=== PATIENT | female | born 1945 | race Caucasian/White ===

== ENCOUNTER → 2016-10-05 | Outpatient (CLI) | payer MEDICARE, BC ==
[~2016-10-05] MED LIST: ATORVASTATIN CA20 MG PO; LISINOPRIL10 MG PO; ONE-A-DAY ESSE1 EAC1 PO; PREMARIN0.45 MG PO; PREMARIN0.625 MG PO; VITAMIN D-32000 UNI2 PO; ZESTRIL20 MG PO; [UNRECOGNIZED DRUG - OTHER] LEFT EYE
== END | disposition home or self-care (01) ==
LOC: CDC 10:25
DX: Z01.810 Encounter for preprocedural cardiovascular examination (principal)
CPT/HCPCS: 93000

== ENCOUNTER 2017-02-22 15:26 | Inpatient (IN) | payer OTHER, BC ==
[~2017-02-22] VITALS: Ht 160 cm; Wt 59.6 kg
[2017-02-22] MEDS ORDERED: VITAMIN D31000 UNIT PO (19:39)
[2017-02-22] MEDS ORDERED: LOVASTATIN20 MG PO (19:39)
[2017-02-22] MEDS ORDERED: [UNRECOGNIZED DRUG - OTHER] TP (19:40)
[2017-02-22] MEDS ORDERED: LO-DOSE ASPIRIN81 M2 PO (19:40)
[2017-02-22] MEDS ORDERED: MELOXICAM15 MG PO (19:40)
[2017-02-22] MEDS ORDERED: AMLODIPINE BES2.5 MG PO (19:41)
[2017-02-22 22:30] VITALS: BP 138/75
[2017-02-23 03:18] VITALS: BP 139/73
[2017-02-23 07:38] LABS: HEMATOCRIT 39.3 % (36.0-46.0); MCH 31.5 PG (29.0-34.0); MCHC 34.4 G/DL (30.0-36.0); MCV 91.6 FL (83-99); MEAN PLAT.VOLUME 10.6 uM^3 (9.5-12.4); PLATELET COUNT 205 K/uL (156-360); RBC DIS.WIDTH-CV 12.6 % (11.8-14.6); RBC DIS.WIDTH-SD 41.9 % (39-53); RED BLOOD COUNT 4.29 M/uL (3.80-5.20); WHITE BLOOD COUNT 7.1 K/uL (4.1-10.2)
[2017-02-23 07:55] VITALS: BP 145/68
[2017-02-23 08:06] LABS: ANION GAP 6 MEQ/L (2-14); CHLORIDE 97 MEQ/L (99-109); GFR ESTIMATE (CALCULATED) > 59 mL/min/; GLUCOSE 131 mg/dL (70-99); POTASSIUM 4.2 MEQ/L (3.7-5.4); SAMPLE HEMOLYSIS CHECK 0; SAMPLE ICTERIC CHECK 0; SAMPLE LIPEMIA CHECK 0; SODIUM 136 MEQ/L (136-147); UREA NITROGEN (BUN) 23 mg/dL (9-23)
[2017-02-23 11:32] VITALS: BP 134/70
[2017-02-23 15:39] VITALS: BP 167/81
[2017-02-23 17:55] VITALS: BP 146/75
[2017-02-24 03:52] VITALS: BP 133/64
[2017-02-24 07:52] VITALS: BP 132/67
[2017-02-24 12:03] VITALS: BP 150/70
[2017-02-24 16:40] VITALS: BP 176/79
[2017-02-24 17:20] LABS: ANION GAP 8 MEQ/L (2-14); CHLORIDE 103 MEQ/L (99-109); GFR ESTIMATE (CALCULATED) > 59 mL/min/; GLUCOSE 118 mg/dL (70-99); POTASSIUM 3.8 MEQ/L (3.7-5.4); SAMPLE HEMOLYSIS CHECK 0; SAMPLE ICTERIC CHECK 0; SAMPLE LIPEMIA CHECK 0; SODIUM 140 MEQ/L (136-147); UREA NITROGEN (BUN) 9 mg/dL (9-23)
[2017-02-24 20:05] VITALS: BP 138/98
[2017-02-24 22:54] VITALS: BP 145/71
[2017-02-25 03:38] VITALS: BP 133/80
[2017-02-25 07:12] LABS: HEMATOCRIT 39.3 % (36.0-46.0); MCH 30.4 PG (29.0-34.0); MCHC 32.8 G/DL (30.0-36.0); MCV 92.5 FL (83-99); MEAN PLAT.VOLUME 10.3 uM^3 (9.5-12.4); PLATELET COUNT 197 K/uL (156-360); RBC DIS.WIDTH-CV 12.2 % (11.8-14.6); RBC DIS.WIDTH-SD 41.9 % (39-53); RED BLOOD COUNT 4.25 M/uL (3.80-5.20); WHITE BLOOD COUNT 4.5 K/uL (4.1-10.2)
[2017-02-25 07:22] VITALS: BP 137/76
[2017-02-25 07:27] LABS: MAGNESIUM 1.9 mg/dl (1.3-2.7)
[2017-02-25 11:20] VITALS: BP 140/76
[2017-02-25 15:15] VITALS: BP 162/74
[2017-02-25 23:49] VITALS: BP 138/72
[2017-02-26 08:08] VITALS: BP 138/80
[2017-02-26 10:13] LABS: ANION GAP 9 MEQ/L (2-14); CHLORIDE 103 MEQ/L (99-109); POTASSIUM 3.8 MEQ/L (3.7-5.4); SAMPLE HEMOLYSIS CHECK 0; SAMPLE ICTERIC CHECK 0; SAMPLE LIPEMIA CHECK 0; SODIUM 139 MEQ/L (136-147)
[2017-02-26 10:18] LABS: GFR ESTIMATE (CALCULATED) > 59 mL/min/; GLUCOSE 102 mg/dL (70-99); UREA NITROGEN (BUN) 6 mg/dL (9-23)
[2017-02-26 16:08] VITALS: BP 147/79
[2017-02-27 00:19] VITALS: BP 142/81
[2017-02-27 07:56] VITALS: BP 130/60
[2017-02-27 15:58] VITALS: BP 145/67
[2017-02-27 23:07] VITALS: BP 143/74
== END 2017-02-28 10:30 | disposition home or self-care (01) | DRG 389 ==
LOC: EME 15:26 → 2EAST 18:32 → EDOF 18:32 → 2EAST 21:50
PROVIDERS: Physician Assistant; Surgery
DX: K56.5 Intestinal adhesions [bands] with obstruction (postinfection) (principal); E87.3 Alkalosis; K21.9 Gastro-esophageal reflux disease without esophagitis; E78.00 Pure hypercholesterolemia, unspecified; I10 Essential (primary) hypertension; E87.6 Hypokalemia; M19.90 Unspecified osteoarthritis, unspecified site; K57.30 Diverticulosis of large intestine without perforation or abscess without bleeding
CPT/HCPCS: 36415; 74000; 80048; 82565; 83735; 84100; 84520; 85027; 99281; 99285; J1170; J2405; J7120; S0028

== ENCOUNTER 2017-06-29 19:34 | Inpatient (IN) | payer OTHER, BC ==
[~2017-06-29] VITALS: Ht 161.3 cm; Wt 54.2 kg
[~2017-06-29 19:34] MED LIST changes: +AMLODIPINE BES2.5 MG PO; +LO-DOSE ASPIRIN81 M2 PO; +LOVASTATIN20 MG PO; +MELOXICAM15 MG PO; +VITAMIN D31000 UNIT PO; +[UNRECOGNIZED DRUG - OTHER] TP
[2017-06-29 20:18] LABS: EOSINOPHIL (%) 0 % (0-5); HEMATOCRIT 44.2 % (36.0-46.0); IMMATURE GRANULOCYTE (%) 0.3 % (0.0-0.7); INSTRUMENT ABS NEUTROPHIL CT 6.4 K/uL; LYMPHOCYTE COUNT 0.8 K/uL (1.0-2.8); MCHC 33.9 G/DL (30.0-36.0); MCV 91.3 FL (83-99); MONOCYTE (%) 5.8 % (3-12); MONOCYTE COUNT 0.5 K/uL (0-0.8); NEUTROPHIL (%) 82.8 % (45-76); NEUTROPHIL COUNT 6.4 K/uL (1.8-6.4); PLATELET COUNT 243 K/uL (156-360); RBC DIS.WIDTH-CV 12.4 % (11.8-14.6); RBC DIS.WIDTH-SD 41.7 % (39-53); RED BLOOD COUNT 4.84 M/uL (3.80-5.20); WHITE BLOOD COUNT 7.7 K/uL (4.1-10.2)
[2017-06-29 20:31] LABS: PROTHROMBIN TIME 10.9 SEC (10.2-12.9)
[2017-06-29 20:33] LABS: PTT 29.6 SEC (25-37)
[2017-06-29 20:34] LABS: CHLORIDE 98 mEq/L (99-109); POTASSIUM 3.9 mEq/L (3.7-5.4); SODIUM 140 mEq/L (136-147)
[2017-06-29 20:35] LABS: MAGNESIUM 2.2 mg/dL (1.3-2.7)
[2017-06-29 20:36] LABS: GLUCOSE 144 mg/dL (70-99)
[2017-06-29 20:38] LABS: ANION GAP 15 MEQ/L (2-14); TOTAL BILIRUBIN 0.6 mg/dL (0.0-1.0)
[2017-06-29 20:40] LABS: ALKALINE PHOSPHATASE 70 IU/L (3-129); GFR ESTIMATE (CALCULATED) 58 mL/min/
[2017-06-29 20:41] LABS: UREA NITROGEN (BUN) 24 mg/dL (9-23)
[2017-06-29 20:43] LABS: LIPASE 30 U/L (1.0-51.0)
[2017-06-29 22:23] LABS: ADD MIUA? YES; BILIRUBIN NEGATIVE; BLOOD SMALL; COLOR STRAW ((YELLOW)); GLUCOSE (STRIP) NEGATIVE; KETONES 5; LEUKOCYTES NEGATIVE; NITRITE NEGATIVE; PROTEIN (STRIP) NEGATIVE; SPECIFIC GRAVITY 1.027 (1.000-1.030); UROBILINOGEN 0.2 MG/DL (0.2-1.0)
[2017-06-29 22:32] LABS: BACTERIA NONE SEEN /HPF; EPITHELIAL CELLS RARE /HPF; HYALINE CASTS 0-5 /LPF; MUCUS TRACE /LPF; RED BLOOD CELLS 0-5 /HPF (0-5); UCUL ADDED? NO; WHITE BLOOD CELLS 0-5 /HPF (0-5)
[2017-06-29 23:08] VITALS: BP 138/82
[2017-06-30 04:15] VITALS: BP 132/78
[2017-06-30 06:28] LABS: HEMATOCRIT 39.3 % (36.0-46.0); MCH 31.2 PG (29.0-34.0); MCHC 34.1 G/DL (30.0-36.0); MCV 91.6 FL (83-99); MEAN PLAT.VOLUME 9.8 uM^3 (9.5-12.4); PLATELET COUNT 216 K/uL (156-360); RBC DIS.WIDTH-CV 12.9 % (11.8-14.6); RBC DIS.WIDTH-SD 43.2 % (39-53); RED BLOOD COUNT 4.29 M/uL (3.80-5.20); WHITE BLOOD COUNT 4.5 K/uL (4.1-10.2)
[2017-06-30 07:06] LABS: ALKALINE PHOSPHATASE 55 IU/L (3-129); ANION GAP 11 MEQ/L (2-14); CHLORIDE 105 MEQ/L (99-109); GFR ESTIMATE (CALCULATED) > 59 mL/min/; POTASSIUM 3.9 MEQ/L (3.7-5.4); SAMPLE HEMOLYSIS CHECK 0; SAMPLE ICTERIC CHECK 0; SAMPLE LIPEMIA CHECK 0; SODIUM 142 MEQ/L (136-147); TOTAL BILIRUBIN 0.6 MG/DL (0.0-1.0); UREA NITROGEN (BUN) 23 mg/dL (9-23)
[2017-06-30 07:09] LABS: GLUCOSE 102 mg/dL (70-99)
[2017-06-30 07:10] VITALS: BP 114/63
[2017-06-30 10:59] VITALS: BP 112/61
[2017-06-30 15:31] VITALS: BP 152/65
[2017-06-30 19:05] VITALS: BP 137/68
[2017-06-30 22:30] VITALS: BP 139/68
[2017-07-01 03:15] VITALS: BP 124/69
[2017-07-01 08:24] VITALS: BP 154/76
[2017-07-01 15:55] VITALS: BP 140/58
[2017-07-01 19:00] VITALS: BP 125/78
[2017-07-02 00:21] VITALS: BP 130/60
[2017-07-02 04:00] VITALS: BP 120/63
[2017-07-02 06:21] LABS: HEMATOCRIT 33.3 % (36.0-46.0); MCH 30.5 PG (29.0-34.0); MCHC 33.3 G/DL (30.0-36.0); MCV 91.5 FL (83-99); MEAN PLAT.VOLUME 9.6 uM^3 (9.5-12.4); PLATELET COUNT 169 K/uL (156-360); RBC DIS.WIDTH-CV 12.2 % (11.8-14.6); RBC DIS.WIDTH-SD 41.3 % (39-53); RED BLOOD COUNT 3.64 M/uL (3.80-5.20); WHITE BLOOD COUNT 3.2 K/uL (4.1-10.2)
[2017-07-02 06:48] LABS: ANION GAP 9 MEQ/L (2-14); CHLORIDE 108 MEQ/L (99-109); GFR ESTIMATE (CALCULATED) > 59 mL/min/; GLUCOSE 112 mg/dL (70-99); POTASSIUM 3.2 MEQ/L (3.7-5.4); SAMPLE HEMOLYSIS CHECK 0; SAMPLE ICTERIC CHECK 0; SAMPLE LIPEMIA CHECK 0; SODIUM 142 MEQ/L (136-147); UREA NITROGEN (BUN) 13 mg/dL (9-23)
[2017-07-02 07:54] VITALS: BP 135/65
[2017-07-02 16:17] VITALS: BP 137/67
[2017-07-02 23:34] VITALS: BP 124/60
[2017-07-03 06:15] LABS: ANION GAP 5 MEQ/L (2-14); CHLORIDE 107 MEQ/L (99-109); GFR ESTIMATE (CALCULATED) > 59 mL/min/; GLUCOSE 115 mg/dL (70-99); SAMPLE HEMOLYSIS CHECK 0; SAMPLE ICTERIC CHECK 0; SAMPLE LIPEMIA CHECK 0; SODIUM 142 MEQ/L (136-147); UREA NITROGEN (BUN) 6 mg/dL (9-23)
[2017-07-03 07:30] VITALS: BP 133/78
== END 2017-07-03 18:01 | disposition home or self-care (01) | DRG 390 ==
LOC: EME 19:34 → 2EAST 21:44 → EDOF 21:44 → ENRESERV 21:45 → EDOF 22:05 → ENRESERV 22:51 → 2EAST 23:00
PROVIDERS: Emergency Medicine; Hospitalist; Internal Medicine; Physician Assistant
DX: K56.51 Intestinal adhesions [bands], with partial obstruction (principal); E87.6 Hypokalemia; I10 Essential (primary) hypertension; E78.5 Hyperlipidemia, unspecified; Z87.891 Personal history of nicotine dependence; Z90.710 Acquired absence of both cervix and uterus; Z90.5 Acquired absence of kidney
CPT/HCPCS: 74000; 74177; 80048; 80053; 81003; 83690; 83735; 85025; 85027; 85610; 85730; 99281; 99285; J1885; J2405; J3480; J7030; J7040; S0028